=== PATIENT | male | born 1965 | race Two or more races ===

== ENCOUNTER 2020-04-19 18:16 | Emergency (ER) | payer BC ==
[~2020-04-19] VITALS: Ht 172.7 cm; Wt 101.6 kg
--- NOTE | 2020-04-19 18:28 | NUR ---
DR HORNE AT BEDSIDE
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
[2020-04-19] MEDS ORDERED: TDAP [DIPH/PERTUSSIS/TET] 0.5 ML VIAL IM ONE ×2 (18:30→18:36)
[2020-04-19] MEDS ORDERED: ACETAMINOPHEN ES 500 MG TABLET PO ONE (18:30)
[2020-04-19] MEDS ORDERED: IBUPROFEN 600 MG TABLET PO ONE (18:30)
[2020-04-19] MEDS ORDERED: CEPHALEXIN MONOHYDRATE 500 MG CAPSULE PO ONE ×2 (18:30→18:36)
[2020-04-19] MEDS ORDERED: ACETAMINOPHEN ES 500 MG TABLET ONE (18:36)
[2020-04-19] MEDS ORDERED: IBUPROFEN 600 MG TABLET ONE (18:36)
--- NOTE | 2020-04-19 18:44 | NUR ---
CALLED [facility] FOR REPORT.
--- NOTE | 2020-04-19 19:59 | NUR ---
Patient discharged to home in stable condition. Written and verbal after care instructions given. Patient verbalizes understanding of instruction.
[2020-04-19 20:00] VITALS: BP 148/86
== END 2020-04-19 20:00 | disposition home or self-care (01) ==
LOC: ER 18:21
DX: S71.131A Puncture wound without foreign body, right thigh, initial encounter (principal); S71.032A Puncture wound without foreign body, left hip, initial encounter; S31.823A Puncture wound without foreign body of left buttock, initial encounter; W34.010A Accidental discharge of airgun, initial encounter; Y93.89 Activity, other specified; Y92.89 Other specified places as the place of occurrence of the external cause; Y99.8 Other external cause status
CPT/HCPCS: 72170-TC; 90715